=== PATIENT | female | born 1980 | race Caucasian/White ===

== ENCOUNTER 2024-01-21 19:26 | Emergency (ER) | payer MEDICAID ==
[~2024-01-21] VITALS: Ht 170.2 cm; Wt 70.3 kg
[2024-01-21 19:35] VITALS: BP_SYST 125; PULSE 73; RESP 18; TEMP 99.1; O2SAT 100
[2024-01-21 20:03] LABS: BILIRUBIN,URINE NEGATIVE (NEGATIVE); CLARITY/URINE SL CLOUDY (CLEAR); GLUCOSE,URINE NEGATIVE (NEGATIVE); KETONES,URINE NEGATIVE (NEGATIVE); LEUKOCYTE ESTERASE ,URINE 2+ (NEGATIVE); NITRITE, URINE NEGATIVE (NEGATIVE); PH,URINE 5.5 (5.0-8.0); PROTEIN URINE NEGATIVE (NEGATIVE); UROBILINOGEN,URINE 0.2 (0.2-1.0)
[2024-01-21 20:07] LABS: HCG,QUAL RESULT NEGATIVE (NEGATIVE)
[2024-01-21 20:12] LABS: BLOOD, URINE TRACE (NEGATIVE); COLOR,URINE STRAW (YELLOW)
[2024-01-21 20:13] LABS: BACTERIA,URINE FEW /HPF (None Seen); MUCUS,URINE None Seen /LPF (None Seen); RBC,URINE NONE SEEN /HPF (0-3)
[2024-01-21] MEDS ORDERED: PHEN-726 PO (20:19)
[2024-01-21] MEDS ORDERED: CEPH-548 PO (20:19)
[2024-01-21 20:48] VITALS: PULSE 73; RESP 18; O2SAT 100
[2024-01-21 20:51] VITALS: BP_SYST 118; TEMP 99.5
== END 2024-01-21 20:51 | disposition home or self-care (01) ==
LOC: SED 19:26
DX: N30.01 Acute cystitis with hematuria (principal); Z88.1 Allergy status to other antibiotic agents; Z88.2 Allergy status to sulfonamides
CPT/HCPCS: 81000; 81001; 81015; 84703; 87086; 87186; 99283